=== PATIENT | female | born 1985 | race Caucasian/White ===

== ENCOUNTER 2017-03-28 04:37 | Emergency (ER) | payer OTHER ==
[~2017-03-28] VITALS: Ht 162.5 cm; Wt 49.9 kg
[~2017-03-28 04:37] MED LIST: AMOXICILLI250 MG/5 M PO; AUGMENTIN 875 M1 TAB PO; AUGMENTIN ES-6100 ML PO; BACTRIM DS 8001 TA1 PO; Bactrim 200 MG/30 ML PO; DARVOCET N 1001 TAB PO; FLEXERIL5 MG PO; HYDROCODONE BIT1 T11 PO; IBUPROFEN100 MG/5 M PO; KEFLEX250 MG/5 M PO; LORTAB 10 MG-3473 ML PO; MACROBID100 M1 PO; MOTRIN CHI100 MG/51 PO; MOTRIN800 MG PO; NAPROSYN500 MG PO; NKHM; PENICILLIN VK500 MG PO; PENICILLIN250 MG/55 PO; Peridex 473 ML473 ML PO
[2017-03-28 04:40] VITALS: BP 133/82
[2017-03-28] MEDS ORDERED: ZITHROMAX200 MG/51 PO (05:22)
== END 2017-03-28 05:46 | disposition home or self-care (01) ==
LOC: ED 04:37
DX: J20.9 Acute bronchitis, unspecified (principal); J02.9 Acute pharyngitis, unspecified; F17.200 Nicotine dependence, unspecified, uncomplicated; Z98.890 Other specified postprocedural states; Z91.041 Radiographic dye allergy status

== ENCOUNTER 2019-01-10 12:16 | Emergency (ER) | payer BC, OTHER ==
[~2019-01-10] VITALS: Wt 49.9 kg
[~2019-01-10 12:16] MED LIST changes: +ZITHROMAX200 MG/51 PO
[2019-01-10 12:17] VITALS: BP 122/72
[2019-01-10] MEDS ORDERED: NAPROSYN500 MG PO (12:24)
[2019-01-10] MEDS ORDERED: ZOFRAN4 MG PO (12:24)
[2019-01-10] MEDS ORDERED: Peridex 473 ML473 ML PO (12:24)
[2019-01-10] MEDS ORDERED: PENICILLIN VK500 MG PO (12:24)
[2019-01-10] MEDS ORDERED: ZOFRAN4 MG/5 ML PO (12:44)
[2019-01-10] MEDS ORDERED: AUGMENTIN400 MG/5 M PO (12:44)
== END 2019-01-10 12:44 | disposition home or self-care (01) ==
LOC: ED 12:16
DX: K02.9 Dental caries, unspecified (principal); R03.0 Elevated blood-pressure reading, without diagnosis of hypertension; Z91.041 Radiographic dye allergy status

== ENCOUNTER 2019-11-19 11:54 | Emergency (ER) | payer BC ==
[~2019-11-19] VITALS: Ht 162.5 cm; Wt 49.9 kg
[2019-11-19 11:54] VITALS: BP 112/71
[~2019-11-19 11:54] MED LIST changes: +AUGMENTIN400 MG/5 M PO; +ZOFRAN4 MG PO; +ZOFRAN4 MG/5 ML PO
[2019-11-19] MEDS ORDERED: ZYRTEC10 MG PO (13:18)
[2019-11-19] MEDS ORDERED: ROBITUSSIN DM 105 ML PO (13:18)
== END 2019-11-19 13:23 | disposition home or self-care (01) ==
LOC: ED 11:54
DX: B34.9 Viral infection, unspecified (principal); Z91.041 Radiographic dye allergy status

== ENCOUNTER 2024-01-07 09:23 | Emergency (ER) | payer BC ==
[~2024-01-07] VITALS: Ht 162.5 cm; Wt 54.4 kg
[~2024-01-07 09:23] MED LIST changes: +ROBITUSSIN DM 105 ML PO; +ZYRTEC10 MG PO
[2024-01-07 09:29] VITALS: BP 141/78
[2024-01-07] MEDS ORDERED: AMOX-CLAV 875-1 EACH PO (09:31)
[2024-01-07] MEDS ORDERED: AMOX-CLAV600 MG/5 M PO (09:34)
[2024-01-07] MEDS ORDERED: Ketorolac Tromethamine 60 MG/2 ML VIAL IM ONE (09:35)
== END 2024-01-07 10:10 | disposition home or self-care (01) ==
LOC: ED 09:23
DX: K04.7 Periapical abscess without sinus (principal); K02.9 Dental caries, unspecified; F17.210 Nicotine dependence, cigarettes, uncomplicated; Z91.041 Radiographic dye allergy status; Z98.890 Other specified postprocedural states